=== PATIENT | male | born 1955 | race Caucasian/White ===

== ENCOUNTER 2016-04-25 09:14 | Inpatient (IN) | payer OTHER ==
[~2016-04-25] VITALS: Ht 177.8 cm; Wt 88.9 kg
[2016-04-25] VITALS (8 sets, daily range): BP systolic 91–136; BP diastolic 50–70
--- NOTE | ~2016-04-25 | D ---
[facility] [place] [address] DISCHARGE SUMMARY Name: KARISHMA ANDRADE Room #: 315-P [facility] IN M.R.#: [id number] Admission: 04/25/16 Attend Phys: Tucker Newby MD Discharge: 04/30/16 Date of : 55 Report #: [id number] THIS REPORT FOR: //name// CC: Calvin Sotelo DATE OF SERVICE: 04/30/2016 TYPE OF DICTATION: Discharge summary. After uard-ow-bjdf encounter, I did see the patient and examined him on the day of discharge, 04/30/2016. DISCHARGE DIAGNOSES: 1. Upper gastrointestinal bleed. 2. Acute blood loss anemia. 3. Multiple duodenal ulcers. 4. Benign prostatic hypertrophy. 5. Coronary artery disease, status post coronary artery bypass graft. 6. Hyperlipidemia. 7. Hypertension. DISCHARGE MEDICATIONS: See discharge summary. HOSPITAL COURSE: The patient was admitted to the hospital secondary to dizziness and he was discovered to have severe anemia with hemoglobin in the low range and orthostatic hypertension. The patient was transfused during his stay in the hospital and he underwent EGD, which did show multiple duodenal ulcers. The patient was started on PPI by IV and GI was following him during his stay in the hospital. The patient was doing better than before and his hemoglobin has remained stable and he received several RBC transfusions during his stay in the hospital. On the day of discharge, I did check his venous ultrasound for right lower extremity swelling and it came back negative. Per GI, the patient is okay to go home today. Continue PPI twice a day and to p.o. iron and to follow with GI as outpatient, to do EGD in 6 weeks for followup and to follow up with his primary care in 1 week to check his CBC. <ELECTRONICALLY SIGNED> By: Humberto Cooper MD 05/01/16 1708 1255 1402 Humberto Cooper MD /nt
--- NOTE | ~2016-04-25 | EKG ---
[address] [address] ELECTROCARDIOGRAM REPORT Name: RAYMONDKARISHMA Room #: 170-6 ADM IN M.R.#: [id number] Admission: 04/25/16 Attend Phys: Tucker Newby MD Discharge: Date of : 55 Report #: [id number] THIS REPORT FOR: //name// [facility] Test Date: 2016-04-25 Test Time: 09:06:57 Pat Name: KARISHMA ANDRADE Department: Room: 170 Gender: M Practical Nurse: EASTON : 1955 Requested By: Jose L Tidwell Order Number: [id number] MD: Andrez Simental Measurements Intervals [place] Rate: 82 P: 56 [place]: 150 QRS: 14 QRSD: 80 T: 269 QT: 359 QTc: 420 Interpretive Statements Sinus rhythm Nonspecific T abnormalities, lateral leads Compared to ECG 03/29/2016 09:10:17 No significant changes Electronically Signed On 04-25-2016 14:16:57 ENGINE MECHANIC by Andrez Simental [email or web address] <ELECTRONICALLY SIGNED> By: Andrez Simental MD 04/25/16 1416 5 5 Andrez Simental MD /MICHAEL
--- NOTE | ~2016-04-25 | S ---
[facility] [place] [address] [place] [address] SURGICAL PATH RPT PROCEDURE Name: KARISHMA NOLASCO Room #: 315-P ADM IN M.R.#: [id number] Admission: 04/25/16 Date of : 55 Discharge: Report #: [id number] Path Case #: [id number] PATHOLOGY REPORT COLLECTION DATE: 04/26/2016 RECEIVED DATE: 04/28/2016 SUBMITTING PHYS: Dr. Ervin Carrion OTHER PHYS: Dr. Odin Ceballos SPECIMEN(S) RECEIVED: A.Duodenal ulcer bx of gastric * * * * * * * * * * * * FINAL DIAGNOSIS: Gastric mucosa, tissue designated as "duodenal ulcer biopsy of gastric": - Fragments lined by gastric-type mucosa with features of moderate reactive gastropathy, see comment. - Negative for intestinal metaplasia or atrophy. - Negative for Helicobacter pylori. COMMENT: Helicobacter pylori immunohistochemical stain performed on block A1 negative. Please note if the tissue represents small bowel mucosa, the findings are characteristic of active peptic duodenitis. Clinical correlation is suggested. (IUV:csd; d/t: 04/29/2016) PATHOLOGIST: Christa Juarez M.D. REPORT ELECTRONICALLY SIGNED BY: Christa Juarez M.D. DATE/TIME: 04/29/2016 16:28 * * * * * * * * * * * * GROSS PATHOLOGY: Received in formalin labeled "Karishma Nolasco and duodenal ulcer bx of gastric," are 8 segments of menard soft tissue measuring 1.9 x 0.4 x 0.2 cm in aggregate dimensions and ranging from 0.2 to 0.7 cm in maximum dimension. The specimen is submitted entirely in cassette A1. (TTL; 04/28/2016) CLINICAL HISTORY: Upper GI bleed, duodenal ulcer INITIAL CPT CODE(S): [facility] [place] [address] [place] [address] SURGICAL PATH RPT PROCEDURE Name: KARISHMA NOLASCO Room #: 315-P ADM IN M.R.#: [id number] Admission: 04/25/16 Date of : 55 Discharge: Report #: [id number] Path Case #: [id number]; [id number], [id number] Professional services performed by [facility] at [facility] [address] [facility] , [place] [address] Technical services performed by [facility] at [address] [place] [address], [facility] [address] [address]. [facility] [address] [place] [address] PHONE: [phone] DIRECTOR: Sudhakar Anderson M.D. * * * END OF REPORT * * *
--- NOTE | ~2016-04-25 | EKG ---
[address] [address] ELECTROCARDIOGRAM REPORT Name: KARISHMA ANDRADE Room #: 170-6 ADM IN M.R.#: [id number] Admission: 04/25/16 Attend Phys: Tucker Newby MD Discharge: Date of : 55 Report #: [id number] THIS REPORT FOR: //name// [facility] ED Test Date: 2016-04-25 Test Time: 09:29:15 Pat Name: KARISHMA ANDRADE Department: Room: 170 Gender: M General Education Professor: ankit : 1955 Requested By: Jose L Tidwell Order Number: [id number] MD: Andrez Simental Measurements Intervals [place] Rate: 82 P: 57 [place]: 147 QRS: 24 QRSD: 84 T: 267 QT: 358 QTc: 418 Interpretive Statements Sinus rhythm Borderline T abnormalities, diffuse leads Compared to ECG 03/29/2016 09:10:17 No significant changes Electronically Signed On 04-25-2016 14:17:08 FOREST FIRE CONTROL OFFICER by Andrez Simental [email or web address] <ELECTRONICALLY SIGNED> By: Andrez Simental MD 04/25/16 1417 8 8 Andrez Simental MD /MICHAEL
--- NOTE | ~2016-04-25 | P ---
[facility] [place] [address] PROCEDURE REPORT Name: KARISHMA ANDRADE Room #: 315-[facility] IN M.R.#: [id number] Admission: 04/25/16 Attend Phys: Tucker Newby MD Discharge: Date of : 55 Report #: [id number] THIS REPORT FOR: //name// CC: Calvin Henao III, MD [facility] physician/PCP Wilberto Sotelo MD [facility] Ervin Newby TYPE OF REPORT: Inpatient upper endoscopy. BRIEF HISTORY: The patient is a 60-year-old male who underwent bypass surgery one month ago. He went to cardiac rehab yesterday and became dizzy and lightheaded. He did have some emesis with dark material. He has also had dark stools for at least 3 days. Prior to surgery, he had been using Mobic. Since his surgery, he has been using ibuprofen. He has a history of dyspepsia or reflux symptoms in the past and used p.r.n. Nexium. The patient had a drop in hemoglobin, on 03/30/2016 was 8.4 and when he presented yesterday was 6.7 and he subsequently received 2 units of blood and hemoglobin this morning was 8.3. PREOPERATIVE DIAGNOSIS: Gastrointestinal bleed, presumed upper gastrointestinal bleed. POSTOPERATIVE DIAGNOSES: 1. Active bleeding duodenal ulcer. 2. Multiple nonbleeding duodenal ulcers. 3. Diffuse gastritis. MEDICATIONS: Initial deep sedation with propofol and during the procedure, intubation was performed by anesthesia. SPECIMEN: Biopsies of the gastric mucosa. ESTIMATED BLOOD LOSS: Trivial blood loss of about 3 mL related to biopsies. No blood loss related procedure but the patient did have an active actually bleeding ulcer, which was controlled. PROCEDURE: EGD with hemostasis and biopsy of findings. DESCRIPTION OF PROCEDURE: Prior to propofol sedation, this procedure of upper endoscopy and therapeutic intervention was discussed with the patient, all potential risks and its complications. He indicates he understands and desires to proceed. The patient in left lateral decubitus position, the COTAi video endoscope was [facility] [address] [place] [address] PROCEDURE REPORT Name: RAYMONDKARISHMA Room #: [facility] IN M.R.#: [id number] Admission: 04/25/16 Attend Phys: Tucker Newby MD Discharge: Date of : 55 Report #: [id number] inserted in the cervical esophagus under direct vision. There was a small amount of blood in the cervical esophagus and this was cleared away. The scope was advanced in the esophagus. Active bleeding was not seen. The scope was advanced in the stomach and a small pool of blood and small amount clot was seen and this was aspirated away. However, the gastric mucosa was coated with blood. We then advanced the scope through the stomach and the blood in the stomach was dark. The pylorus was traversed. Two ulcers were seen at the junction of duodenum and the second portion as well as the second portion. Active bleeding was not seen. Distal to that area now beyond the duodenal papilla in about the third portion of duodenum, there was a clot, which was aspirated away and there was an oozing ulcer under this clot. At this point, the patient started to show obstructive signs and the anesthesia was struggling with airway obstruction, which resulted in a bouncing field. It was felt best to withdrawal the scope and intubate the patient. The anesthesia then intubated the patient and adequate sedation was achieved once his airway was controlled and we resumed the procedure with a double channeled scope. Consideration was undertaking for placement of clip but it was felt that the ulcer was flat and the protuberant area was organized clot. We then injected about 2 mL of 2 mL of 1:10,000 epinephrine. The bleeding ceased at that point. There was a small raised area over the ulcer bed. The ulcer relatively shallow. We then used a 10-Belizean BICAP probe and multiple applications of the probe resulted in total destruction of the overlying clot and flattening the lesion with a typical footprint from the BICAP. There was no further hemostasis. Again, several applications were applied. The ulcer was inspected and observed and no further bleeding was seen. As we withdrew the scope, 2 other ulcers were seen. One was linear ulcer about 12-15 mm in length and about 5 mm in width. It had a white exudate, but no clots or bleeding. On the opposite wall was a cratered ulcer of about 7-9 mm, again with a clean basis and no bleeding. No additional bleeding was seen. Scope was withdrawn back into the stomach. Upon retroflexion, no additional lesions were seen. Biopsies obtained of the gastric mucosa to evaluate for H. pylori. Scope was withdrawn to the esophagus and active bleeding was not seen. The scope was withdrawn and the patient tolerated the procedure well. DISPOSITION: The patient with active GI bleeding, controlled as described above. At this point in time, we will continue PPI drip at least overnight. Continue to monitor hemoglobin. He may require additional transfusion that he was actively bleeding during the procedure. He will need a followup endoscopy to ensure healing of the ulcer. The patient does avoid use of nonsteroidals. He may benefit from use of a PPI on a long-term basis. <ELECTRONICALLY SIGNED> By: Ervin Carrion MD 04/27/16 1104 0905 2111 Ervin Carrion MD /evin
[~2016-04-25 09:14] MED LIST: ASPIR 8181 MG PO; ATORVASTATIN CA40 MG PO; FISH OIL 1,0001 EAC8 PO; FLOVENT HFA 2220 MCG INH; GLUCOSAMINE HC500 MG PO; LISINOPRIL40 MG PO; METOPROLOL TART25 MG PO; MOBIC7.5 MG PO; NORCO 5-325 TA1 EACH PO; PROSCAR 5MG TABL5 M1 PO; TESTIM5 GM TD; TYLENOL ARTHRI650 MG PO; TYLENOL PM EX-1 EACH PO; ZYRTEC10 MG PO
[2016-04-25] MEDS ORDERED: PRINIVIL20 MG PO (09:27)
[2016-04-25] MEDS ORDERED: LISINOPRIL20 MG PO (09:28)
[2016-04-25 09:37] LABS: ABSOLUTE NEUTROPHILS 8.2 thou/uL (1.4-8.2); BASOPHILS 0.5 % (0.0-2.0); EOSINOPHILS 1.2 % (0.0-3.0); HEMATOCRIT 25.2 % (42.0-52.0); HEMOGLOBIN 8.4 gm/dL (14.0-18.0); LYMPHOCYTES 12.5 % (24.0-44.0); MCH 29.7 pg (26.0-34.0); MCHC 33.3 % (28.0-37.0); MCV 89.1 fL (80.0-100.0); PLATELET COUNT 216 thou/uL (150-400); POLYS 81.8 % (36.0-66.0); RBC 2.83 mil/uL (4.50-6.00); RDW 14.3 % (10.5-14.5)
[2016-04-25 09:39] LABS: MANUAL DIFF NO
[2016-04-25 09:48] LABS: ANION GAP 8 mmol/L (7-16); BUN 44 mg/dL (7-18); CALCIUM 8.9 mg/dL (8.5-10.1); CHLORIDE 109 mmol/L (98-107); CO2 25 mmol/L (21-32); CREATININE 1.2 mg/dL (0.6-1.3); GLUCOSE 133 mg/dL (70-99); POTASSIUM 4.7 mmol/L (3.5-5.1); SODIUM 142 mmol/L (136-145)
[2016-04-25 09:59] LABS: ALBUMIN 3.1 g/dL (3.4-5.0); ALKALINE PHOSPHATASE 46 U/L (46-116); MAGNESIUM 1.4 mg/dL (1.8-2.4); SGPT 12 U/L (30-65); TOTAL BILIRUBIN 0.2 mg/dL (<0.1-1.0); TROPONIN-I < 0.04 ng/mL (<0.04-0.07)
[2016-04-25 10:06] LABS: SGOT 7 U/L (15-37)
[2016-04-25 19:18] LABS: HEMOGLOBIN 6.7 gm/dL (14.0-18.0)
[2016-04-26] VITALS (10 sets, daily range): BP systolic 95–121; BP diastolic 56–70
[2016-04-26 04:37] LABS: HEMATOCRIT 25.2 % (42.0-52.0); HEMOGLOBIN 8.3 gm/dL (14.0-18.0); MCH 29.2 pg (26.0-34.0); MCHC 32.9 % (28.0-37.0); MCV 88.6 fL (80.0-100.0); RBC 2.84 mil/uL (4.50-6.00); RDW 15.6 % (10.5-14.5); WBC 9.5 thou/uL (4.0-11.0)
[2016-04-26 04:42] LABS: ALBUMIN 2.6 g/dL (3.4-5.0); CALCIUM 8.3 mg/dL (8.5-10.1); CREATININE 1.1 mg/dL (0.6-1.3); POTASSIUM 4.7 mmol/L (3.5-5.1); TOTAL BILIRUBIN 0.5 mg/dL (<0.1-1.0); TOTAL PROTEIN 5.2 g/dL (6.4-8.2)
[2016-04-26 11:16] LABS: HEMATOCRIT 21.5 % (42.0-52.0)
[2016-04-26 11:21] LABS: HEMOGLOBIN 7.3 gm/dL (14.0-18.0)
[2016-04-26 21:23] LABS: HEMATOCRIT 23.9 % (42.0-52.0); HEMOGLOBIN 7.9 gm/dL (14.0-18.0); MCH 29.2 pg (26.0-34.0); MCHC 33.2 % (28.0-37.0); MCV 88.2 fL (80.0-100.0); RBC 2.71 mil/uL (4.50-6.00); RDW 15.2 % (10.5-14.5); WBC 15.7 thou/uL (4.0-11.0)
[2016-04-26 21:35] LABS: INR 1.1; PROTIME 10.9 Seconds (9.3-11.4)
[2016-04-27] VITALS (7 sets, daily range): BP systolic 116–162; BP diastolic 61–90
[2016-04-27 03:42] LABS: HEMOGLOBIN 7.2 gm/dL (14.0-18.0)
[2016-04-27 13:00] LABS: WBC 10.5 thou/uL (4.0-11.0)
[2016-04-27 13:02] LABS: HEMATOCRIT 20.7 % (42.0-52.0); MCH 30.2 pg (26.0-34.0); RBC 2.33 mil/uL (4.50-6.00); RDW 15.7 % (10.5-14.5)
[2016-04-28 04:46] VITALS: BP 106/61
[2016-04-28 06:40] LABS: MONOCYTES 6.6 % (1.0-8.0); POLYS 76.2 % (36.0-66.0)
[2016-04-28 06:42] LABS: BASOPHILS 0.4 % (0.0-2.0); EOSINOPHILS 1.5 % (0.0-3.0); HEMATOCRIT 21.5 % (42.0-52.0); LYMPHOCYTES 15.3 % (24.0-44.0); MCH 30.3 pg (26.0-34.0); MCHC 33.7 % (28.0-37.0); PLATELET COUNT 165 thou/uL (150-400); RBC 2.39 mil/uL (4.50-6.00); WBC 9.2 thou/uL (4.0-11.0)
[2016-04-28 06:48] LABS: MANUAL DIFF NO
[2016-04-28 06:49] LABS: HEMOGLOBIN 7.2 gm/dL (14.0-18.0)
[2016-04-28 06:54] LABS: ALBUMIN 2.6 g/dL (3.4-5.0); ALKALINE PHOSPHATASE 33 U/L (46-116); ANION GAP 9 mmol/L (7-16); BUN 30 mg/dL (7-18); CALCIUM 8.1 mg/dL (8.5-10.1); CHLORIDE 107 mmol/L (98-107); CO2 25 mmol/L (21-32); GLUCOSE 118 mg/dL (70-99); POTASSIUM 3.8 mmol/L (3.5-5.1); SGOT < 5 U/L (15-37); SGPT 12 U/L (30-65); SODIUM 141 mmol/L (136-145); TOTAL BILIRUBIN 0.6 mg/dL (<0.1-1.0); TOTAL PROTEIN 5.1 g/dL (6.4-8.2)
[2016-04-28 08:29] VITALS: BP 125/64
[2016-04-28 11:58] VITALS: BP 120/58
[2016-04-28 17:07] VITALS: BP 104/54
[2016-04-28 17:40] LABS: HEMATOCRIT 21.3 % (42.0-52.0)
[2016-04-28 17:45] LABS: HEMOGLOBIN 7.2 gm/dL (14.0-18.0)
[2016-04-28 20:50] VITALS: BP 104/54
[2016-04-29 04:43] VITALS: BP 121/69
[2016-04-29 06:33] LABS: WBC 8.3 thou/uL (4.0-11.0)
[2016-04-29 06:36] LABS: HEMATOCRIT 21.7 % (42.0-52.0); MCH 30.1 pg (26.0-34.0); MCHC 32.9 % (28.0-37.0); MCV 91.4 fL (80.0-100.0); RBC 2.37 mil/uL (4.50-6.00); RDW 16.3 % (10.5-14.5)
[2016-04-29 07:02] LABS: HEMOGLOBIN 7.1 gm/dL (14.0-18.0)
[2016-04-29 08:00] VITALS: BP 108/64
[2016-04-29 12:00] VITALS: BP 110/61
[2016-04-29 14:39] VITALS: BP 114/64; BP 125/72
[2016-04-29 16:00] VITALS: BP 125/72
[2016-04-29 20:56] VITALS: BP 148/71
[2016-04-30 05:00] VITALS: BP 139/74
[2016-04-30 06:42] LABS: HEMOGLOBIN 8.2 gm/dL (14.0-18.0)
[2016-04-30 08:25] VITALS: BP 131/76
[2016-04-30 12:26] VITALS: BP 136/76
[2016-04-30] MEDS ORDERED: FERREX 150 PLU1 EAC1 PO (12:57)
[2016-04-30] MEDS ORDERED: NEXIUM40 MG PO (12:57)
[2016-04-30 13:30] VITALS: BP 136/76
[2016-04-30 13:39] VITALS: BP 136/76
[2016-04-30] MEDS ORDERED: PROTONIX40 M1 PO (13:39)
== END 2016-04-30 14:25 | disposition home or self-care (01) | DRG 377 ==
LOC: ER 09:14 → EROBS 12:18 → 3N 12:18
PROVIDERS: Emergency Medicine; Family Medicine; Internal Medicine Gastroenterology; Nurse Practitioner Family; Specialist
PROC: 3E0G8GC Introduction of Other Therapeutic Substance into Upper GI, Via Natural or Artificial Opening Endoscopic (ICD-10-PCS; principal; 2016-04-26)
PROC: 0DB68ZX Excision of Stomach, Via Natural or Artificial Opening Endoscopic, Diagnostic (ICD-10-PCS; principal; 2016-04-26)
PROC: 0W3P8ZZ Control Bleeding in Gastrointestinal Tract, Via Natural or Artificial Opening Endoscopic (ICD-10-PCS; principal; 2016-04-26)
PROC: 30233N1 Transfusion of Nonautologous Red Blood Cells into Peripheral Vein, Percutaneous Approach (ICD-10-PCS; 2016-04-27)
DX: K26.4 Chronic or unspecified duodenal ulcer with hemorrhage (principal); J69.0 Pneumonitis due to inhalation of food and vomit; J96.01 Acute respiratory failure with hypoxia; D62 Acute posthemorrhagic anemia; K92.2 Gastrointestinal hemorrhage, unspecified; I10 Essential (primary) hypertension; N40.0 Benign prostatic hyperplasia without lower urinary tract symptoms; I25.10 Atherosclerotic heart disease of native coronary artery without angina pectoris; E78.5 Hyperlipidemia, unspecified; K29.60 Other gastritis without bleeding; K21.9 Gastro-esophageal reflux disease without esophagitis; Z95.1 Presence of aortocoronary bypass graft; Z90.49 Acquired absence of other specified parts of digestive tract; Z79.899 Other long term (current) drug therapy; Z79.82 Long term (current) use of aspirin; Z88.1 Allergy status to other antibiotic agents
CPT/HCPCS: 10096; 23012; 62110; 62900; 70005

== ENCOUNTER 2016-06-27 09:49 | Inpatient (IN) | payer OTHER ==
[~2016-06-27] VITALS: Ht 177.8 cm; Wt 84.0 kg
--- NOTE | ~2016-06-27 | EKG ---
[address] [place] [address] ELECTROCARDIOGRAM REPORT Name: KARISHMA ANDRADE Room #: 212-P ADM IN M.R.#: [id number] Admission: 06/27/16 Attend Phys: Santa Canela Discharge: Date of : 55 Report #: [id number] THIS REPORT FOR: //name// [facility] Test Date: 2016-06-27 Test Time: 18:23:34 Pat Name: KARISHMA ANDRADE Department: Room: 212 P Gender: M Macerator Operator: Brenda RIOS : 1955 Requested By: Jolie Ortiz Order Number: [id number] MD: Refugio Donahue Measurements Intervals [place] Rate: 123 P: 46 [place]: 137 QRS: -2 QRSD: 84 T: 172 QT: 286 QTc: 409 Interpretive Statements Sinus tachycardia LVH with secondary repolarization abnormality Compared to ECG 04/25/2016 09:29:15 No significant change was found Electronically Signed On 06-28-2016 11:57:15 BRIDGE CONSTRUCTION INSPECTOR by Refugio Donahue [email or web address] <ELECTRONICALLY SIGNED> By: Refugio Donahue MD, [facility] 06/28/16 1157 22 22 Refugio Donahue MD, [facility] /EPI
--- NOTE | ~2016-06-27 | CNG ---
[facility] [place] [address] CYTO-NONGYN REPORT PROCEDURE Name: RAYMONDFRANCIAKARISHMA Room #: 212-P ADM IN M.R.#: [id number] Admission: 06/27/16 Date of : 55 Discharge: Report #: [id number] Path Case #: [id number] CYTOPATHOLOGY REPORT COLLECTION DATE: 06/30/2016 RECEIVED DATE: 06/30/2016 SUBMITTING PHYS: SCOTT Hill OTHER PHYS: Dr. Santa Canela CLINICAL HISTORY: Pleural effusion; SOB; left shoulder/flank pain SPECIMEN(S) RECEIVED: A.Pleural fluid * * * * * * * * * * * * FINAL DIAGNOSIS: A. Pleural fluid: - No malignant cells identified. -Specimen is predominantly acute inflammatory cells compatible with an exudate. PATHOLOGIST: Christa Juarez M.D. REPORT ELECTRONICALLY SIGNED BY: Christa Juarez M.D. DATE/TIME: 07/01/2016 16:26 * * * * * * * * * * * * GROSS PATHOLOGY: A. Pleural fluid: The specimen is submitted unfixed, labeled "Karishma Andrade". Received by the Cytology Department is 30 mL of yellow fluid. One ThinPrep slide and a cell block were prepared. (kg 06/30/16) ABALONE DIVER(S): REY Finch([facility] INITIAL CPT CODE(S): A; 15427, 42614 Professional services performed by [facility] at [facility] [address], [place] [address] Technical services performed by [facility] at [address] [place] [address]., [address], [place] [address]. [facility] [address] [place] [address], [facility] [address] [place] [address] PHONE: [phone] [facility] [address] [place] [address] CYTO-NONGYN REPORT PROCEDURE Name: KARISHMA ANDRADE Room #: 212-P ADM IN M.R.#: [id number] Admission: 06/27/16 Date of : 55 Discharge: Report #: [id number] Path Case #: [id number] DIRECTOR: Sudhakar Anderson M.D. * * * END OF REPORT * * *
--- NOTE | ~2016-06-27 | EKG ---
[place] [address] [facility] [employer] [place] [address] ELECTROCARDIOGRAM REPORT Name: KARISHMA ANDRADE Room #: 212-[facility] IN M.R.#: [id number] Admission: 06/27/16 Attend Phys: Santa Canela Discharge: 07/03/16 Date of : 55 Report #: [id number] THIS REPORT FOR: //name// [facility] Test Date: 2016-07-03 Test Time: 11:20:29 Pat Name: KARISHMA ANDRADE Department: Room: 212 P Gender: M Chiropractic Assistant: macario : 1955 Requested By: Melody Beck Order Number: [id number] MD: Refugio Donahue Measurements Intervals [place] Rate: 94 P: 8 [place]: 136 QRS: -2 QRSD: 71 T: 32 QT: 334 QTc: 418 Interpretive Statements Sinus rhythm Nonspecific T wave abnormality Compared to ECG 06/27/2016 18:23:34 ST and T wave abnormality is less pronounced Electronically Signed On 07-04-2016 8:25:51 CDT by Refugio Donahue [email or web address] <ELECTRONICALLY SIGNED> By: Refugio Donahue MD, [facility] 07/04/16 0825 1120 1120 Refugio Donahue MD, [facility] /EPI
--- NOTE | ~2016-06-27 | HC ---
[facility] [place] [address] CONSULTATION Name: RAYMONDKARISHMA RUSS Room #: 212-P [facility] IN M.R.#: [id number] Admission: 06/27/16 Attend Phys: Santa Canela Discharge: 07/03/16 Date of : 55 Report #: [id number] THIS REPORT FOR: //name// CC: Calvin Catron Santa Canela DATE OF SERVICE: 06/28/2016 HISTORY OF PRESENT ILLNESS: We were asked to see the patient. The patient is a 61-year-old known to me from coronary artery bypass surgery in early March 2016. The patient had a somewhat slow, but satisfactory hospital convalescence and was discharged in satisfactory condition. We note that the patient had an upper gastrointestinal bleed requiring blood transfusion in April and was readmitted on June 27, for a large pleural effusion. This was symptomatic as the patient presented with chest pain, shortness of breath with exertion and rest and associated with lower extremity edema. We note that the patient was given cortisone injection for shoulder pain prior to this, but no chest x-ray was done. Ultimately, the patient had a chest x-ray in his primary care physician's office and that prompted the readmission. PAST MEDICAL HISTORY: Significant for hypertension and hyperlipidemia. There is a history of previous pneumonia. MEDICATIONS: At home includes Proscar, Lipitor, metoprolol, lisinopril, Carafate, Flexeril, Flonase, vitamin C and vitamin D, Tylenol, Zyrtec, omega-3, and glucosamine. ALLERGIES: AMOXICILLIN. FAMILY HISTORY: Not significant. SOCIAL HISTORY: Nonsmoker, and lives [place]ally. REVIEW OF SYSTEMS: GENERAL: The patient has had fatigue and generalized weakness since bypass surgery. Denied fever to me. EYES: No vision change. HEENT: No specific nasal discharge or sore throat. RESPIRATORY: Shortness of breath, pleuritic chest pain, shortness of breath with exertion. CARDIAC: Fluid retention, peripheral edema. No angina, but chest pain of an incision nature, has had a tachycardia as well. GASTROINTESTINAL: No nausea, vomiting, or diarrhea. GENITOURINARY: No dysuria or frequency. [facility] [address] [place] [address] CONSULTATION Name: KARISHMA ANDRADE Room #: 212-P [facility] IN M.R.#: [id number] Admission: 06/27/16 Attend Phys: Santa Canela Discharge: 07/03/16 Date of : 55 Report #: [id number] SKIN: No rash or infection. NEUROLOGIC: No motor or sensory weakness. MUSCULOSKELETAL: No bone or joint problems other than some left shoulder pain that was probably referred pain from the diaphragm. HEMATOLOGIC: Anemia related to the GI bleeding, treated. LYMPHATIC: No swelling. ENDOCRINE: No hot or cold intolerance. PHYSICAL EXAMINATION: VITAL SIGNS: Temperature 37.3, pulse rate 120, respiratory rate 18, and blood pressure 115/72. HEENT: Normocephalic. Pupils are round and equal. Gaze conjugate, no icterus. NECK: No lymphadenopathy, no bruit. CHEST: Decreased breath sounds, left chest, otherwise clear. HEART: Rhythm regular. Incision healing nicely. ABDOMEN: Soft, no mass, no tenderness. EXTREMITIES: No clubbing or cyanosis, no significant edema, strong distal pulses. SKIN: No rash or infection. NEUROLOGIC: No motor or sensory dysfunction. MUSCULOSKELETAL: No bone or joint deformity or dyssymmetry. NEUROLOGIC: Oriented and appropriate, but appears somewhat generally weak. IMPRESSION: The patient has a loculated left pleural effusion. We note that thoracentesis has been done, but there is some residual fluid. There may be fluid component and we will discuss with radiology prospects of draining it. Otherwise, decision to recommend surgery will be based on clinical basis, the patient is reluctant to surgery, but let us see what we can do with repeat thoracentesis before making that decision. Thank you for the consult. <ELECTRONICALLY SIGNED> By: Ervin House MD 07/09/16 1948 1030 1353 Ervin House MD /nt
--- NOTE | ~2016-06-27 | CNG ---
[facility] [address] [address] CYTO-NONGYN REPORT PROCEDURE Name: KARISHMA NOLASCO Room #: 212-P ADM IN M.R.#: [id number] Admission: 06/27/16 Date of : 55 Discharge: Report #: [id number] Path Case #: [id number] CYTOPATHOLOGY REPORT COLLECTION DATE: 06/27/2016 RECEIVED DATE: 06/27/2016 SUBMITTING PHYS: Dr. Santa Canela OTHER PHYS: CLINICAL HISTORY: Pleural effusion SPECIMEN(S) RECEIVED: A.Pleural fluid * * * * * * * * * * * * FINAL DIAGNOSIS: A. Pleural fluid: - No malignant cells identified. Marked acute inflammation identified. PATHOLOGIST: Christa Juarez M.D. REPORT ELECTRONICALLY SIGNED BY: Christa Juarez M.D. DATE/TIME: 06/30/2016 17:01 * * * * * * * * * * * * GROSS PATHOLOGY: A. Pleural fluid: The specimen is submitted unfixed, labeled "Karishma Nolasco". Received by the Cytology Department is 25 mL of yellow fluid. One ThinPrep slide and a cell block were prepared. (kg 06/27) PROJECT MANAGER/DESIGN MANAGER(S): REY Sandoval(ASCP), IAC INITIAL CPT CODE(S): A; 03026, 59670 Professional services performed by [facility] at [facility] [address], [place] [address] Technical services performed by [facility] at [address] [facility], [place] [address]. [facility] [address] [place] [address], [address] [place] [address] PHONE: [phone] DIRECTOR: Sudhakar Anderson M.D. [facility] [address] [place] [address] CYTO-NONGYN REPORT PROCEDURE Name: KARISHMA NOLASCO Room #: 212-P ADM IN M.R.#: [id number] Admission: 06/27/16 Date of : 55 Discharge: Report #: [id number] Path Case #: [id number] * * * END OF REPORT * * *
--- NOTE | ~2016-06-27 | HC ---
[facility] [place] [address] [place] [address] CONSULTATION Name: KARISHMA ANDRADE Room #: 212-P ADM IN M.R.#: [id number] Admission: 06/27/16 Attend Phys: Santa Canela Discharge: Date of : 55 Report #: [id number] THIS REPORT FOR: //name// CC: Calvin Canela REASON FOR CONSULTATION: Left chest pleural fluid collection. HISTORY OF PRESENT ILLNESS: The patient was a 61-year-old, underwent a 5-vessel coronary bypass grafting 03/26/2016 by Gadiel House. Did reasonably well until 04/25/2016 where he was diagnosed with gastritis and multiple duodenal ulcers with upper GI bleed. He has undergone 2 upper endoscopies. His last endoscopy showed marked improvement, but not totally healed. Two weeks ago developed minimally productive cough, mostly a light colored sputum. Developed more shortness of breath with dyspnea on exertion and mild orthopnea. Then developed a left pleuritic chest pain mid week last week. Seen in the outpatient clinic and given a cortisone injection. He felt better for 24 hours and then worsened. Trial of diuretics did not improve the situation. Most of his pain remains on the left chest with some radiation to his left shoulder. He has had no hemoptysis. He has not been on any current blood thinners. No antibiotics prior to his admission. Since admitted, he has been placed on Levaquin and given a dose of metronidazole. ALLERGIES: AMOXICILLIN. OTHER MEDICATIONS: As noted on his MAR including a Proscar, Lipitor, metoprolol, lisinopril, Carafate, Flexeril, Flonase, vitamin C, vitamin D, Tylenol, Zyrtec, omega-3 and glucosamine. PAST MEDICAL HISTORY: Appendectomy, he has had back surgery, wrist surgery, sinus surgery, previous pneumonia, hyperlipidemia and hypertension. FAMILY HISTORY: Noncontributory. SOCIAL HISTORY: Nonsmoker, no significant alcohol intake. Lives with his . REVIEW OF SYSTEMS: He denies any nausea, vomiting or diarrhea. No dysuria or frequency. No rashes. No drainage from the sternal incision. He has chronic sinus disease with postnasal drip. PHYSICAL EXAMINATION: VITAL SIGNS: He is afebrile, maximum temperature was 99 degrees, heart rate 120s, blood pressure 115/72. He underwent a left thoracentesis yesterday. GENERAL: He was alert and cooperative, sitting up in his chair eating his lunch. HEENT: Unremarkable. NECK: Supple. [facility] [address] [place] [address] CONSULTATION Name: KARISHMA ANDRADE Room #: 212-P [facility] IN .R.#: [id number] Admission: 06/27/16 Attend Phys: Santa Canela Discharge: Date of : 55 Report #: [id number] LUNGS: Decreased breath sounds in the left base posteriorly. HEART: Regular, tachycardic. ABDOMEN: Soft, mild tenderness in the epigastric region. No hepatosplenomegaly or mass. EXTREMITIES: 1+ edema in both lower extremities below the knee. NEUROLOGIC: Nonfocal. LABORATORY STUDIES: Chest x-ray shows a fairly large left pleural effusion with associated atelectasis. Sodium 135, potassium 3.1, bicarbonate 25, creatinine 1, ALT 73. Hemoglobin 9.1, platelet count 580,000, white count 17.4. Urinalysis unremarkable. INR 1.1. Analysis of the left chest fluid, which is 450 mL and had a pH of 7.2. Protein of 5, albumin 2.8. LDH 911. Glucose 39. Cell count was 5500 cells, 90% neutrophils. Do not have a Gram stain or a culture, although was ordered, it was not sent to the laboratory for analysis. I did call down to the microbiology laboratory and they are working for the specimen and will get it set up once they can find it. I do not have a post-thoracentesis chest x-ray. IMPRESSION AND PLAN: A 61-year-old with an exudative pleural effusion on the left, associated with leukocytosis, pain and cough. I am concerned about possible empyema. I would recommend a CT scan of the chest to ensure we have adequate drainage. We will consultation cardiothoracic surgery for followup evaluation. I have contacted laboratory studies to ensure cultures have been obtained. We will continue with vancomycin and Levaquin noticing his PENICILLIN allergy. He will be screened for MRSA. We will also obtain blood culture and followup CBC with differential. <ELECTRONICALLY SIGNED> By: Jamil Gardner MD 06/29/16 1115 1259 0116 Jamil Gardner MD /nt
--- NOTE | ~2016-06-27 | HC ---
[facility] [place] [address] CONSULTATION Name: KARISHMA ANDRADE Room #: 212-P [facility] IN M.R.#: [id number] Admission: 06/27/16 Attend Phys: Santa Canela Discharge: 07/03/16 Date of : 55 Report #: [id number] THIS REPORT FOR: //name// CC: Calvin Canela DATE OF SERVICE: 07/01/2016 PRIMARY CARE PHYSICIAN: Calvin Henao MD REFERRAL PHYSICIAN: Jorge Flaherty MD REASON FOR REFERRAL: Loculated pleural effusion. HISTORY OF PRESENT ILLNESS: The patient is a 61-year-old white male who was admitted on 06/27/2016 due to dyspnea and large pleural effusion. A pulmonary consultation was requested. The patient underwent coronary artery bypass surgery on 03/26/2016. Perioperatively, the patient did well. In April 2016, he was found to have upper GI bleed. EGD revealed duodenal ulcers. A recent followup by his gastroenterology suggest that some of the ulcers have not healed completely yet. While undergoing cardiac rehabilitation last week, he was found to be tachypneic, not feeling well. His heart rate was said to be 130s. A chest x-ray was requested. This revealed large left-sided pleural effusion. On June 27, the patient underwent thoracentesis. This procedure yielded approximately 450 mL of pleural fluid on the left. The discoloration description of pleural fluid was not described. The patient also underwent another thoracentesis on 06/30/2016. Only 100 mL of pleural fluid was drained. The pleural fluid was clear. Subsequent studies including a CT chest revealed phpl-si-dirbmexc loculated left-sided pleural effusion. The pleural fluid analysis showed pleural fluid LDH of over 1000, pH was 7.2, protein was 5, amylase was 32. Cytology was negative for malignant cells; it is notable for marked inflammatory cells. Gram stain shows no organisms, but many polymorphonucleocytes. Culture so far has been negative. Otherwise, the patient does not recall any recent febrile illness, chest pain, myalgias, fever or chills. Since admission and following 2 thoracenteses, he states that he feels better. [facility] [address] [place] [address] CONSULTATION Name: KARISHMA ANDRADE Room #: 212-P [facility] IN .R.#: [id number] Admission: 06/27/16 Attend Phys: Santa Canela Discharge: 07/03/16 Date of : 55 Report #: [id number] Dyspnea has improved. Only complaint is mild left shoulder and chest discomfort. PAST MEDICAL HISTORY: As mentioned above, coronary artery disease, undergoing coronary artery bypass surgery in March 2016, echocardiogram showed normal EF; otherwise, no significant findings, peptic ulcer disease as mentioned above in April 2016, hypertension, hyperlipidemia. PAST SURGICAL HISTORY: As mentioned above including appendectomy, prior back surgery, wrist surgery, prior sinus surgery. ALLERGIES: PENICILLIN which causes hives. CURRENT MEDICATIONS: List reviewed. This includes atenolol, Protonix, vancomycin, lisinopril, fluticasone, Levaquin, atorvastatin, sucralfate, DuoNebs, loratadine, hydrocodone. FAMILY HISTORY: Noncontributory. SOCIAL HISTORY: He is a lifetime nonsmoker, drinks socially. He also notes that he is somewhat apprehensive now because his brother last January from aspiration pneumonia. REVIEW OF SYSTEMS: Otherwise, review of system as mentioned above, 10-point system review negative. PHYSICAL EXAMINATION: GENERAL: He is awake, alert, in no apparent distress. VITAL SIGNS: Temperature is 98 degrees Fahrenheit, pulse is 118, respiratory rate is 20, blood pressure 106/70 mmHg, saturation 99%. HEENT: Normocephalic, atraumatic. NECK: Supple without any lymphadenopathy or thyromegaly. CHEST: Breath sounds are decreased in the left base. No rales or wheezes are noted. CARDIOVASCULAR: Normal S1, S2. There are no murmurs or gallop. There is no JVD. There is no carotid bruit. Pulses are 2+/4+ bilaterally. ABDOMEN: Soft, nontender, no organomegaly or masses felt. GENITOURINARY: Deferred. RECTAL: Deferred. EXTREMITIES: There is no edema, cyanosis or clubbing. LABORATORY DATA AND IMAGING STUDIES: CT chest and chest x-ray as mentioned above showing [id number] loculated left-sided pleural effusion. Cytology has been negative for malignant cells. Electrolytes are normal. Liver function test is normal. WBC 15,000; no differential being done, hemoglobin 8.3, platelets are mildly increased. Albumin 2.0. [address] [address] CONSULTATION Name: KARISHMA ANDRADE Room #: 212-P [facility] IN M.R.#: [id number] Admission: 06/27/16 Attend Phys: Santa Canela Discharge: 07/03/16 Date of : 55 Report #: [id number] IMPRESSION: 1. Loculated pleural effusion in a 61-year-old white male. Pleural fluid analysis suggested ____. The pH is borderline being empyema with a pH of 7.2. LDH was markedly elevated from 900 to 1000. Cultures so far have been negative. This is felt to be presumed related to pneumonia. Postcardiotomy syndrome is also considered. Doubtful there is malignancy. 2. Recent coronary artery bypass surgery in March 2016. 3. Peptic ulcer disease in April 2016. 4. Protein-calorie malnutrition, severe. RECOMMENDATION AND DISCUSSION: Our daily surgical decortication will be treatment of choice for this patient; however, the patient is quite apprehensive in proceeding with another surgery. I think it is reasonable to hold off on surgery given that it is not overt empyema. Agree with followup CT chest tomorrow and will discuss with the patient. If pleural fluid remains moderate and he remains symptomatic, surgical decortication might be the best option. Alternatively, if the patient absolutely refuses surgery, he could be followed as an outpatient closely. Thank you for this consultation. <ELECTRONICALLY SIGNED> By: Darwin Burton MD 07/03/16 1801 1631 20 Darwin Burton MD /nt
[~2016-06-27 09:49] MED LIST changes: +FERREX 150 PLU1 EAC1 PO; +LISINOPRIL20 MG PO; +NEXIUM40 MG PO; +PRINIVIL20 MG PO; +PROTONIX40 M1 PO
[2016-06-27] MEDS ORDERED: CARAFATE 1 GM TA1 G1 PO (12:09)
[2016-06-27] MEDS ORDERED: FLEXERIL PO (12:10)
[2016-06-27] MEDS ORDERED: FLONASE 0.05%50 MCG NASAL (12:20)
[2016-06-27] MEDS ORDERED: VITAMIN D1000 UNI1 PO (12:21)
[2016-06-27] MEDS ORDERED: VITAMINC500 PO (12:21)
[2016-06-27] MEDS ORDERED: TYLENOL PM EX-1 EACH PO (12:22)
[2016-06-27] MEDS ORDERED: LASIX 40 MG TAB40 M2 PO (12:50)
[2016-06-27] MEDS ORDERED: POTASSIUM20 PO (12:51)
[2016-06-27 13:03] LABS: HEMATOCRIT 29.4 % (42.0-52.0); HEMOGLOBIN 9.1 gm/dL (14.0-18.0); MCH 24.5 pg (26.0-34.0); MCV 79.2 fL (80.0-100.0); RBC 3.72 mil/uL (4.50-6.00); RDW 17.5 % (10.5-14.5); WBC 17.4 thou/uL (4.0-11.0)
[2016-06-27 13:03] LABS: URINE BILIRUBIN NEGATIVE (Negative); URINE BLOOD NEGATIVE (Negative); URINE COLOR YELLOW; URINE GLUCOSE-RANDOM* NEGATIVE (Negative); URINE KETONES NEGATIVE (Negative); URINE NITRITE NEGATIVE (Negative); URINE PROTEIN (DIPSTICK) NEGATIVE (Negative); URINE UROBILINOGEN 0.2 E.U./dl (0.2-1.0)
[2016-06-27 13:19] LABS: CALCIUM 9.5 mg/dL (8.5-10.1); POTASSIUM 3.9 mmol/L (3.5-5.1)
[2016-06-27 13:20] LABS: INR 1.1; PROTIME 11.8 Seconds (9.3-11.4)
[2016-06-27 13:24] LABS: ALBUMIN 2.4 g/dL (3.4-5.0); TOTAL BILIRUBIN 0.5 mg/dL (<0.1-1.0); TOTAL PROTEIN 7.7 g/dL (6.4-8.2)
[2016-06-27 15:39] LABS: BF NUCLEATED CELLS 5499; BF RBC 2149
[2016-06-27 15:41] LABS: CLARITY CLOUDY; COLOR YELLOW; TOTAL VOLUME 60 mL
[2016-06-27 18:14] LABS: BF NEUTROPHILS 91; MANUAL DIFF YES
[2016-06-27 18:15] LABS: BF COMMENTS 1 MONOCYTE; BF MACROPHAGE 3
[2016-06-28 07:10] LABS: BODY FLUID ALBUMIN 2.8 g/dL (()); BODY FLUID AMYLASE 32 U/L (()); BODY FLUID GLUCOSE 39 mg/dL (()); BODY FLUID LDH 911 IU/L (())
[2016-06-28 16:47] LABS: HEMATOCRIT 29.2 % (42.0-52.0); HEMOGLOBIN 9.3 gm/dL (14.0-18.0); MCH 24.9 pg (26.0-34.0); MCHC 31.8 g/dL (28.0-37.0); MCV 78.5 fL (80.0-100.0); PLATELET COUNT 596 thou/uL (150-400); RBC 3.72 mil/uL (4.50-6.00); RDW 17.7 % (10.5-14.5); WBC 16.9 thou/uL (4.0-11.0)
[2016-06-28 17:01] LABS: MANUAL DIFF YES
[2016-06-28 17:17] LABS: ABSOLUTE NEUTROPHILS 14.5 thou/uL (1.4-8.2); ANISOCYTOSIS 1+; TOTAL CELL COUNT 100
[2016-06-29 04:05] LABS: HEMOGLOBIN 9.2 gm/dL (14.0-18.0); MCHC 31.7 g/dL (28.0-37.0); MCV 78.8 fL (80.0-100.0); RBC 3.68 mil/uL (4.50-6.00); RDW 18.4 % (10.5-14.5); WBC 17.9 thou/uL (4.0-11.0)
[2016-06-29 04:17] LABS: ALBUMIN 2.2 g/dL (3.4-5.0); CALCIUM 8.6 mg/dL (8.5-10.1); CREATININE 1.1 mg/dL (0.6-1.3); PHOSPHORUS 4.9 mg/dL (2.5-4.9); POTASSIUM 4.1 mmol/L (3.5-5.1)
[2016-06-30 04:36] LABS: HEMATOCRIT 26.9 % (42.0-52.0); HEMOGLOBIN 8.7 gm/dL (14.0-18.0); MCH 25.1 pg (26.0-34.0); MCHC 32.1 g/dL (28.0-37.0); MCV 78.1 fL (80.0-100.0); PLATELET COUNT 550 thou/uL (150-400); RBC 3.45 mil/uL (4.50-6.00); RDW 17.5 % (10.5-14.5); WBC 18.4 thou/uL (4.0-11.0)
[2016-06-30 04:41] LABS: MANUAL DIFF YES
[2016-06-30 04:47] LABS: CALCIUM 8.4 mg/dL (8.5-10.1); CREATININE 1.1 mg/dL (0.6-1.3); POTASSIUM 3.9 mmol/L (3.5-5.1); TOTAL BILIRUBIN 0.4 mg/dL (<0.1-1.0); TOTAL PROTEIN 6.1 g/dL (6.4-8.2)
[2016-06-30 06:59] LABS: ABSOLUTE NEUTROPHILS 16.4 thou/uL (1.4-8.2); TOTAL CELL COUNT 100
[2016-06-30 07:01] LABS: ANISOCYTOSIS 1+; POLYCHROMASIA OCCASIONAL
[2016-06-30 15:25] LABS: CLARITY TURBID; COLOR AMBER; TOTAL VOLUME 63 mL
[2016-06-30 15:35] LABS: BF NUCLEATED CELLS 7189; BF RBC 4760
[2016-06-30 18:06] LABS: BF MACROPHAGE 0; BF NEUTROPHILS 97; MANUAL DIFF YES
[2016-06-30 19:08] LABS: BODY FLUID ALBUMIN 2.5 g/dL (()); BODY FLUID AMYLASE 35 U/L (()); BODY FLUID GLUCOSE 30 mg/dL (()); BODY FLUID LDH 1226 IU/L (()); BODY FLUID PROTEIN 4.9 g/dL (())
[2016-07-01 02:05] LABS: HEMOGLOBIN 8.3 gm/dL (14.0-18.0); MCH 24.8 pg (26.0-34.0); MCHC 31.9 g/dL (28.0-37.0); MCV 77.7 fL (80.0-100.0); RBC 3.35 mil/uL (4.50-6.00); RDW 18.3 % (10.5-14.5)
[2016-07-01 02:12] LABS: CALCIUM 8.6 mg/dL (8.5-10.1); POTASSIUM 3.8 mmol/L (3.5-5.1)
[2016-07-01 18:43] LABS: CREATININE 1.1 mg/dL (0.6-1.3); POTASSIUM 3.7 mmol/L (3.5-5.1)
[2016-07-02 07:10] LABS: HEMATOCRIT 29.6 % (42.0-52.0); HEMOGLOBIN 9.4 gm/dL (14.0-18.0); MCH 24.6 pg (26.0-34.0); MCHC 31.8 g/dL (28.0-37.0); MCV 77.5 fL (80.0-100.0); RBC 3.82 mil/uL (4.50-6.00); RDW 18.3 % (10.5-14.5); WBC 18.7 thou/uL (4.0-11.0)
[2016-07-02 07:17] LABS: MANUAL DIFF YES; PLATELET COUNT 639 thou/uL (150-400)
[2016-07-02 07:23] LABS: CALCIUM 9.2 mg/dL (8.5-10.1); MAGNESIUM 1.5 mg/dL (1.8-2.4); POTASSIUM 3.9 mmol/L (3.5-5.1)
[2016-07-02 07:40] LABS: ABSOLUTE NEUTROPHILS 16.6 thou/uL (1.4-8.2); ANISOCYTOSIS 2+; HYPOCHROMASIA 1+; POLYCHROMASIA OCCASIONAL; TOTAL CELL COUNT 100
[2016-07-03 03:24] LABS: MCH 24.8 pg (26.0-34.0); MCHC 31.9 g/dL (28.0-37.0); MCV 77.9 fL (80.0-100.0); RBC 3.21 mil/uL (4.50-6.00); RDW 18.1 % (10.5-14.5)
[2016-07-03 03:31] LABS: CALCIUM 8.6 mg/dL (8.5-10.1); CREATININE 0.9 mg/dL (0.6-1.3); POTASSIUM 3.7 mmol/L (3.5-5.1)
[2016-07-03] MEDS ORDERED: LEVAQUIN 500 M500 M4 PO (10:23)
[2016-07-03] MEDS ORDERED: ATENOLOL 100MG100 M2 PO (13:43)
[2016-07-03] MEDS ORDERED: LEVAQUIN 500 M500 M9 PO (13:43)
[2016-07-03] MEDS ORDERED: LISINOPRIL5 MG PO (13:43)
== END 2016-07-03 14:50 | disposition home or self-care (01) | DRG 177 ==
LOC: 2N 09:49
PROVIDERS: Hospitalist; Internal Medicine; Nurse Practitioner Family; Physician Assistant; Specialist; Surgery Vascular Surgery
PROC: BB4BZZZ Ultrasonography of Pleura (ICD-10-PCS; principal; 2016-06-27)
PROC: 0W993ZX Drainage of Right Pleural Cavity, Percutaneous Approach, Diagnostic (ICD-10-PCS; principal; 2016-06-27)
PROC: 0W9B3ZX Drainage of Left Pleural Cavity, Percutaneous Approach, Diagnostic (ICD-10-PCS; 2016-06-30)
PROC: BB4BZZZ Ultrasonography of Pleura (ICD-10-PCS; 2016-06-30)
DX: J15.6 Pneumonia due to other Gram-negative bacteria (principal); J86.9 Pyothorax without fistula; E43 Unspecified severe protein-calorie malnutrition; I50.33 Acute on chronic diastolic (congestive) heart failure; J90 Pleural effusion, not elsewhere classified; E87.1 Hypo-osmolality and hyponatremia; E78.5 Hyperlipidemia, unspecified; I25.10 Atherosclerotic heart disease of native coronary artery without angina pectoris; G89.29 Other chronic pain; M54.9 Dorsalgia, unspecified; J30.2 Other seasonal allergic rhinitis; D64.9 Anemia, unspecified; I50.9 Heart failure, unspecified; I11.0 Hypertensive heart disease with heart failure; N40.0 Benign prostatic hyperplasia without lower urinary tract symptoms; E78.00 Pure hypercholesterolemia, unspecified; K21.9 Gastro-esophageal reflux disease without esophagitis; E78.1 Pure hyperglyceridemia; Z90.49 Acquired absence of other specified parts of digestive tract; Z95.1 Presence of aortocoronary bypass graft; Z68.26 Body mass index [BMI] 26.0-26.9, adult; Z87.11 Personal history of peptic ulcer disease; Z88.0 Allergy status to penicillin; Z88.1 Allergy status to other antibiotic agents
CPT/HCPCS: 10081; 27000

== ENCOUNTER → 2016-07-09 | Outpatient (CLI) | payer OTHER ==
[~2016-07-09] MED LIST changes: +ATENOLOL 100MG100 M2 PO; +CARAFATE 1 GM TA1 G1 PO; +FLEXERIL PO; +FLONASE 0.05%50 MCG NASAL; +LASIX 40 MG TAB40 M2 PO; +LEVAQUIN 500 M500 M4 PO; +LEVAQUIN 500 M500 M9 PO; +LISINOPRIL5 MG PO; +POTASSIUM20 PO; +VITAMIN D1000 UNI1 PO; +VITAMINC500 PO
[2016-07-09 08:48] LABS: HEMATOCRIT 31.3 % (42.0-52.0); HEMOGLOBIN 9.7 gm/dL (14.0-18.0); MCH 24.1 pg (26.0-34.0); MCV 77.7 fL (80.0-100.0); PLATELET COUNT 576 thou/uL (150-400); RBC 4.02 mil/uL (4.50-6.00); WBC 14.7 thou/uL (4.0-11.0)
[2016-07-09 08:53] LABS: MANUAL DIFF YES
[2016-07-09 08:59] LABS: CALCIUM 9.5 mg/dL (8.5-10.1); CREATININE 1.2 mg/dL (0.6-1.3); POTASSIUM 4.5 mmol/L (3.5-5.1)
[2016-07-09 09:03] LABS: ALBUMIN 2.5 g/dL (3.4-5.0); TOTAL BILIRUBIN 0.2 mg/dL (<0.1-1.0); TOTAL PROTEIN 7.8 g/dL (6.4-8.2)
[2016-07-09 09:20] LABS: ABSOLUTE NEUTROPHILS 12.8 thou/uL (1.4-8.2); TOTAL CELL COUNT 100
== END ==
LOC: RAD 08:25
PROVIDERS: Specialist
DX: J18.9 Pneumonia, unspecified organism (principal); J90 Pleural effusion, not elsewhere classified; J98.11 Atelectasis

== ENCOUNTER → 2016-07-23 | Outpatient (CLI) | payer OTHER ==
--- NOTE | ~2016-07-23 | CNG ---
[facility] [place] [place] [address] [address] [place] [address] CYTO-NONGYN REPORT PROCEDURE Name: RASHARD NOLASCO Room #: REG CL BrendaDonny.#: [id number] Admission: 07/23/16 Date of : 55 Discharge: Report #: [id number] Path Case #: [id number] CYTOPATHOLOGY REPORT COLLECTION DATE: 07/23/2016 RECEIVED DATE: 07/23/2016 SUBMITTING PHYS: SCOTT Hill OTHER PHYS: Dr. Jamil Henao, [place] CLINICAL HISTORY: Pleural Effusion SPECIMEN(S) RECEIVED: A.Pleural fluid * * * * * * * * * * * * FINAL DIAGNOSIS: A. Pleural fluid: - No malignant cells identified. Marked acute inflammation consistent with an exudate. COMMENT: Due to the obscuring inflammation no other cells are identified or evaluated for that reason. Suggest clinical correlation with anaerobic/aerobic cultures and additional studies if indicated. (IUV; 07/24/16) PATHOLOGIST: Christa Juarez M.D. REPORT ELECTRONICALLY SIGNED BY: Christa Juarez M.D. DATE/TIME: 07/24/2016 16:34 * * * * * * * * * * * * GROSS PATHOLOGY: A. Pleural fluid: The specimen is submitted unfixed, labeled "Rashard Nolasco". Received by the Cytology Department is 10 mL of thick dark yellow fluid. One ThinPrep slide and a cell block were prepared. (mm 4.) DRY ROOM ATTENDANT(S): Noemy Lowry, REY(ASCP), IAC INITIAL CPT CODE(S): A; 24976, 60363 Professional services performed by [facility] at [facility] [address], [place] [address] Technical services performed by [facility] at [address] [place] [address]., [address], [place] [address]. [facility] [address] [place] [address] CYTO-NONGYN REPORT PROCEDURE Name: RASHARD NOLASCO Room #: REG [facility].#: [id number] Admission: 07/23/16 Date of : 55 Discharge: Report #: [id number] Path Case #: [id number] [facility] [address] [place] [address], [facility] [place] [address] [place] [address] PHONE: [phone] DIRECTOR: Sudhakar Anderson M.D. * * * END OF REPORT * * *
[2016-07-23 10:31] LABS: HEMATOCRIT 31.3 % (42.0-52.0); HEMOGLOBIN 10.1 gm/dL (14.0-18.0); MCH 23.9 pg (26.0-34.0); MCHC 32.2 g/dL (28.0-37.0); MCV 74.2 fL (80.0-100.0); RBC 4.21 mil/uL (4.50-6.00); WBC 10.9 thou/uL (4.0-11.0)
[2016-07-23 10:39] LABS: CALCIUM 9.7 mg/dL (8.5-10.1); CREATININE 0.9 mg/dL (0.7-1.3); POTASSIUM 4.3 mmol/L (3.5-5.1)
[2016-07-23 10:47] LABS: INR 1.1; PROTIME 11.5 Seconds (9.3-11.4)
[2016-07-23 11:59] LABS: CLARITY TURBID; COLOR GRAY; TOTAL VOLUME 60 mL
[2016-07-23 13:56] LABS: BF NUCLEATED CELLS 609500; BF RBC 31000; MANUAL DIFF YES
[2016-07-23 15:22] LABS: BF NEUTROPHILS 91
[2016-07-23 15:24] LABS: BF MACROPHAGE 0
[2016-07-24 19:06] LABS: BODY FLUID ALBUMIN 0.6 g/dL (()); BODY FLUID AMYLASE 4 U/L (()); BODY FLUID GLUCOSE 360 mg/dL (()); BODY FLUID LDH 58720 IU/L (()); BODY FLUID PROTEIN 2.8 g/dL (())
== END ==
LOC: RAD 08:25 → ULTRA 08:25 → RAD 11:16
PROVIDERS: Physician Assistant
DX: J90 Pleural effusion, not elsewhere classified (principal); R06.02 Shortness of breath; J18.9 Pneumonia, unspecified organism; J86.9 Pyothorax without fistula; J94.8 Other specified pleural conditions

== ENCOUNTER 2016-07-31 06:17 | Inpatient (IN) | payer OTHER ==
[2016-07-29 09:46] LABS: HEMATOCRIT 32.1 % (42.0-52.0); MCH 23.5 pg (26.0-34.0); MCHC 31.1 g/dL (28.0-37.0); MCV 75.6 fL (80.0-100.0); RBC 4.24 mil/uL (4.50-6.00); RDW 18.9 % (10.5-14.5); WBC 11.7 thou/uL (4.0-11.0)
[2016-07-29 09:47] LABS: URINE BILIRUBIN NEGATIVE (Negative); URINE BLOOD NEGATIVE (Negative); URINE COLOR YELLOW; URINE GLUCOSE-RANDOM* NEGATIVE (Negative); URINE KETONES NEGATIVE (Negative); URINE LEUKOCYTES-REFLEX NEGATIVE (Negative); URINE PROTEIN (DIPSTICK) NEGATIVE (Negative); URINE SPECIFIC GRAVITY 1.015 (1.003-1.035); URINE UROBILINOGEN 0.2 E.U./dl (0.2-1.0)
[2016-07-29 10:03] LABS: APTT 29.4 Seconds (24.5-32.8); INR 1.1; PROTIME 11.1 Seconds (9.3-11.4)
[2016-07-29 10:05] LABS: ALBUMIN 2.9 g/dL (3.4-5.0); CALCIUM 9.2 mg/dL (8.5-10.1); POTASSIUM 4.5 mmol/L (3.5-5.1); TOTAL BILIRUBIN 0.3 mg/dL (<0.1-1.0); TOTAL PROTEIN 7.7 g/dL (6.4-8.2)
[2016-07-31] VITALS (11 sets, daily range): BP systolic 101–119; BP diastolic 60–75
[~2016-07-31] VITALS: Ht 177.8 cm; Wt 83.5 kg
--- NOTE | ~2016-07-31 | O ---
[facility] [place] [address] OPERATIVE REPORT Name: KARISHMA ANDRADE Room #: 212-P [facility] IN M.R.#: [id number] Admission: 07/31/16 Attend Phys: Ervin House MD Discharge: 08/04/16 Date of : 55 Report #: [id number] THIS REPORT FOR: //name// CC: Calvin Cageok Ervin House DATE OF SERVICE: 07/31/2016 PREOPERATIVE DIAGNOSIS: Empyema, left chest. POSTOPERATIVE DIAGNOSIS: Empyema, left chest. PROCEDURE: Bronchoscopy, left video-assisted thoracoscopy, left posterolateral thoracotomy with decortication. SURGEON: Evrin House MD. RAW STOCK MACHINE LOADER: Brian. ANESTHESIA: General. INDICATIONS: The patient is a 61-year-old known to me from coronary artery bypass surgery in March. The patient had somewhat slow, but satisfactory postoperative course and he was discharged in satisfactory condition. Unfortunately, he returned in April with gastrointestinal bleed. It appears that later, the patient had a pneumonia in May and as a result of this, he developed a parapneumonic effusion. We had recommended that the patient have exploration for this earlier, but he refused surgery; however, he has done poorly with chronic wasting, persistent cough and appears now for a definitive treatment of this loculated effusion and empyema. FINDINGS AND TECHNIQUE: After general anesthesia was established, flexible diagnostic bronchoscopy was performed. There was abundant sputum in the left lower lobe bronchial system, but no specific endobronchial lesions. A double lumen tube was placed. The patient was positioned with left side up. Exposure was initially obtained through video-assisted thoracoscopy ports, but there was too much reaction for this procedure to be successful; therefore, the incision was expanded to a posterolateral thoracotomy and a decortication was taken out. We entered a pustule pocket in the lower aspect of the left chest. Cultures of this were sent. The lung was decorticated, but most of the reaction was in the left lower lobe region. We decorticated this area as best we could with both sharp and blunt dissection and the chest was irrigated with copious amounts of saline. Hemostasis was ascertained and 4 tubes were placed to drain the anterior, [facility] [address] [place] [address] OPERATIVE REPORT Name: RAYMONDKARISHMA RUSS Room #: 212-P DIS IN M.R.#: [id number] Admission: 07/31/16 Attend Phys: Ervin House MD Discharge: 08/04/16 Date of : 55 Report #: [id number] lateral, posterior, and inferior pleural surfaces and then the chest was closed in the usual fashion. The patient was taken to the recovery area in good condition having tolerated the procedure well. All counts reported as correct. By: 1419 1515 Ervin House MD /nt
--- NOTE | ~2016-07-31 | H ---
[facility] [place] [address] HISTORY AND PHYSICAL Name: RAYMONDKARISHMA RUSS Room #: 212-P [facility] IN M.R.#: [id number] Admission: 07/31/16 Attend Phys: Ervin House MD Discharge: 08/04/16 Date of : 55 Report #: [id number] THIS REPORT FOR: //name// For History and Physical, please see office documentation/handwritten note in the patient's medical record. <ELECTRONICALLY SIGNED> By: Ervin House MD 08/08/16 0830 1426 Ervin House MD /
--- NOTE | ~2016-07-31 | S ---
[facility] [place] [address] SURGICAL PATH RPT PROCEDURE Name: KARISHMA NOLASCO Room #: 212-P ADM IN M.R.#: [id number] Admission: 07/31/16 Date of : 55 Discharge: Report #: [id number] Path Case #: [id number] PATHOLOGY REPORT COLLECTION DATE: 07/31/2016 RECEIVED DATE: 08/01/2016 SUBMITTING PHYS: Dr. Ervin House OTHER PHYS: Dr. Calvin Henao, III SPECIMEN(S) RECEIVED: A.Left pleural peel B.Abscess wall * * * * * * * * * * * * FINAL DIAGNOSIS: A. Left pleural peel: - Marked acute inflammation along with fibrinopurulent exudate. - Reactive mesothelium. B. Abscess wall: - Marked acute inflammation along with fibrinopurulent exudate, consistent with abscess wall. (IUV:csd; d/t: 08/04/2016) PATHOLOGIST: Christa Juarez M.D. REPORT ELECTRONICALLY SIGNED BY: Christa Juarez M.D. DATE/TIME: 08/04/2016 15:18 * * * * * * * * * * * * GROSS PATHOLOGY: A. The specimen is received in formalin, labeled "Karishma Nolasco and left pleural peel." Received is a 9.4 x 5.5 x 2.2 cm aggregate of blood-tinged, yellow-menard to pink-menard, rubbery, and thickened soft tissue. The specimen is serially sectioned and representatively submitted in cassette A1. B. The specimen is received in formalin, labeled "Karishma Nolasco and abscess wall." Received is a 3.2 x 2.8 x 1.0 cm aggregate of blood-tinged, pink-menard to casey-menard, membranous, and rubbery soft tissue. The specimen is sectioned and representatively submitted in cassette B1. (TTL; 08/01/2016) CLINICAL HISTORY: Loculated pleural effusion, left INITIAL CPT CODE(S): A; [address] [address] SURGICAL PATH RPT PROCEDURE Name: KARISHMA NOLASCO RUSS Room #: 212- ADM IN M.R.#: [id number] Admission: 07/31/16 Date of : 55 Discharge: Report #: [id number] Path Case #: [id number]; [id number] Professional services performed by [facility] at [address], [place] [address] Technical services performed by [facility] at [address] [place] [address], [address], [place] [address]. [facility] [address] [address] PHONE: [phone] DIRECTOR: Sudhakar Anderson M.D. * * * END OF REPORT * * *
--- NOTE | ~2016-07-31 | HC ---
[facility] [place] [address] CONSULTATION Name: KARISHMA ANDRADE Room #: 212-P ADM IN M.R.#: [id number] Admission: 07/31/16 Attend Phys: Ervin House MD Discharge: Date of : 55 Report #: [id number] THIS REPORT FOR: //name// CC: Calvin House INFECTIOUS DISEASE CONSULTATION REASON FOR CONSULTATION: I was asked to evaluate the patient concerning left chest empyema. HISTORY OF PRESENT ILLNESS: The patient was initially evaluated in June, where he was found to have a loculated left chest effusion. Attempts at thoracentesis failed. Initial culture results were no growth. He was treated with IV antibiotic therapy and dismissed on Levaquin after the patient had refused thoracotomy for drainage of this empyema. While at home, he was still failing to thrive. He was finally convinced to proceed with surgery one month following his last hospitalization. 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 He underwent surgery yesterday with decortication. Surgery went well without complication. He has chest tubes in place, now is on oxygen per nasal cannula. He is alert and cooperative. He had undergone coronary bypass grafting in first week of March of 2016. Leading up to his current surgery, no fever or chills. This was not progressing well in rehabilitation. ALLERGIES: AMOXICILLIN. MEDICATIONS: As noted on his MAR, he was given cefazolin and clindamycin postoperatively. PAST MEDICAL HISTORY: Appendectomy, back surgery, wrist surgery and sinus surgery. He has had a previous pneumonia, hyperlipidemia and hypertension. FAMILY HISTORY: Noncontributory. SOCIAL HISTORY: Nonsmoker. No significant alcohol intake. Lives with his . REVIEW OF SYSTEMS: No GI or complaints. PHYSICAL EXAMINATION: VITAL SIGNS: The patient was afebrile and hemodynamically stable. GENERAL: He is alert, cooperative and pleasant. Still a fair amount of pain. Four chest tubes in the left side. HEENT: Unremarkable. [address] [address] CONSULTATION Name: KARISHMA ANDRADE Room #: [facility] IN M.R.#: [id number] Admission: 07/31/16 Attend Phys: Ervin House MD Discharge: Date of : 55 Report #: [id number] LUNGS: Decreased breath sounds on the left. HEART: Regular, without murmur. ABDOMEN: Soft, nontender. No hepatosplenomegaly or mass. EXTREMITIES: Unremarkable. LABORATORY STUDIES: Sodium 135, potassium 4.8, bicarbonate 22 and creatinine 1.4. Hemoglobin 8.5, white count 13.5 and platelet count 384,000. Urinalysis unremarkable. Chest fluid from yesterday is currently pending. Chest x-ray, left-sided thoracostomy tubes in place, small pleural effusion. IMPRESSION: A 61-year-old with empyema, left chest, with Fusobacterium identified. The patient is allergic to AMOXICILLIN. PLAN: Plan will be to treat with ceftriaxone and metronidazole. We will continue postoperative care. <ELECTRONICALLY SIGNED> By: Jamil Gardner MD 08/04/16 1120 0918 1108 Jamil Gardner MD /nt
[~2016-07-31 06:17] MED LIST changes: +ATENOLOL 100MG100 MG PO; +LEVAQUIN 500 M500 M2 PO; +LIPITOR 20 MG T20 M1 PO; +PANTOPRAZOLE SO40 M1 PO
[2016-08-01 04:52] LABS: HEMATOCRIT 27.2 % (42.0-52.0); HEMOGLOBIN 8.5 gm/dL (14.0-18.0); MCH 23.2 pg (26.0-34.0); MCHC 31.1 g/dL (28.0-37.0); MCV 74.5 fL (80.0-100.0); RBC 3.66 mil/uL (4.50-6.00); RDW 18.6 % (10.5-14.5); WBC 13.5 thou/uL (4.0-11.0)
[2016-08-01 06:10] LABS: CALCIUM 8.3 mg/dL (8.5-10.1); CREATININE 1.4 mg/dL (0.7-1.3); POTASSIUM 4.8 mmol/L (3.5-5.1)
[2016-08-01 09:29] VITALS: BP 110/72
[2016-08-01 11:40] VITALS: BP 113/78
[2016-08-01 15:15] VITALS: BP 119/69
[2016-08-01 19:55] VITALS: BP 107/61
[2016-08-02 00:02] VITALS: BP 134/70
[2016-08-02 04:05] VITALS: BP 107/71
[2016-08-02 07:25] VITALS: BP 94/56
[2016-08-02 11:05] VITALS: BP 113/68
[2016-08-02 15:35] VITALS: BP 109/68
[2016-08-02 20:05] VITALS: BP 116/67
[2016-08-03 04:10] LABS: CALCIUM 8.8 mg/dL (8.5-10.1); CREATININE 1.2 mg/dL (0.7-1.3); POTASSIUM 3.9 mmol/L (3.5-5.1)
[2016-08-03 04:16] VITALS: BP 121/72
[2016-08-03 04:20] LABS: HEMATOCRIT 25.7 % (42.0-52.0); MCH 23.2 pg (26.0-34.0); MCV 74.8 fL (80.0-100.0); PLATELET COUNT 371 thou/uL (150-400); RBC 3.44 mil/uL (4.50-6.00); RDW 18.6 % (10.5-14.5); WBC 11.2 thou/uL (4.0-11.0)
[2016-08-03 04:25] LABS: MANUAL DIFF YES
[2016-08-03 05:40] LABS: ABSOLUTE NEUTROPHILS 8.7 thou/uL (1.4-8.2); ANISOCYTOSIS 2+; HYPOCHROMASIA SLIGHT; MICROCYTES 1+; TOTAL CELL COUNT 100
[2016-08-03 07:10] VITALS: BP 129/88
[2016-08-03 11:40] VITALS: BP 124/71
[2016-08-03 16:10] VITALS: BP 114/66
[2016-08-03 20:08] VITALS: BP 130/76
[2016-08-04 04:18] VITALS: BP 125/83
[2016-08-04 07:15] VITALS: BP 136/69
[2016-08-04 10:03] VITALS: BP 136/69
[2016-08-04 12:00] VITALS: BP 107/64
[2016-08-04 14:27] VITALS: BP 107/64; BP 136/69
[2016-08-08] MEDS ORDERED: FLAGYL500 MG PO (10:28)
== END 2016-08-04 15:31 | disposition home or self-care (01) | DRG 163 ==
LOC: ICU 06:17 → TBA 06:17 → PRE 08:16 → ICU 16:46 → 2N 08-01 11:59
PROVIDERS: Internal Medicine Infectious Disease; Physician Assistant; Surgery Vascular Surgery
PROC: 0BDP0ZZ Extraction of Left Pleura, Open Approach (ICD-10-PCS; principal; 2016-07-31)
PROC: 03HC33Z Insertion of Infusion Device into Left Radial Artery, Percutaneous Approach (ICD-10-PCS; 2016-07-31)
PROC: B548ZZA Ultrasonography of Superior Vena Cava, Guidance (ICD-10-PCS; 2016-08-04)
PROC: 02HV33Z Insertion of Infusion Device into Superior Vena Cava, Percutaneous Approach (ICD-10-PCS; 2016-08-04)
DX: J86.9 Pyothorax without fistula (principal); J18.9 Pneumonia, unspecified organism; J90 Pleural effusion, not elsewhere classified; E78.5 Hyperlipidemia, unspecified; I10 Essential (primary) hypertension; Z96.639 Presence of unspecified artificial wrist joint; I25.10 Atherosclerotic heart disease of native coronary artery without angina pectoris; Z79.899 Other long term (current) drug therapy; Z95.1 Presence of aortocoronary bypass graft; Z88.1 Allergy status to other antibiotic agents; Z90.49 Acquired absence of other specified parts of digestive tract
CPT/HCPCS: 10081; 10204; 27001; 47405; 50010; 50101; 50386; 50417; 50455; 50497; 51301; 51717; 52265; 54118; 56524; 56525; 56526; 56527; 56531; 62110; 62900; 65020; 65040; 65043; 65105; 70005

== ENCOUNTER → 2016-08-05 | Outpatient (CLI) | payer OTHER ==
[~2016-08-05] MED LIST changes: +FLAGYL500 MG PO
[2016-08-05 10:20] VITALS: BP 117/66
== END ==
LOC: OPONC 08:07
DX: J86.9 Pyothorax without fistula (principal)
CPT/HCPCS: 95000

== ENCOUNTER → 2016-08-06 | Outpatient (CLI) | payer OTHER ==
[2016-08-06 11:36] VITALS: BP 120/73
== END ==
LOC: OPONC 08:19
DX: J90 Pleural effusion, not elsewhere classified (principal)
CPT/HCPCS: 95000; 95001

== ENCOUNTER → 2016-08-07 | Outpatient (CLI) | payer OTHER ==
[2016-08-07 09:30] VITALS: BP 128/66
== END ==
LOC: OPONC 09:03
DX: J90 Pleural effusion, not elsewhere classified (principal)
CPT/HCPCS: 95000

== ENCOUNTER → 2016-08-08 | Outpatient (CLI) | payer OTHER ==
[2016-08-08 08:38] LABS: HEMATOCRIT 26.5 % (42.0-52.0); HEMOGLOBIN 8.3 gm/dL (14.0-18.0); MCH 23.2 pg (26.0-34.0); MCHC 31.4 g/dL (28.0-37.0); RBC 3.58 mil/uL (4.50-6.00); RDW 18.8 % (10.5-14.5); WBC 7.2 thou/uL (4.0-11.0)
[2016-08-08 08:49] LABS: CALCIUM 8.4 mg/dL (8.5-10.1); CREATININE 1.1 mg/dL (0.7-1.3); POTASSIUM 3.6 mmol/L (3.5-5.1)
[2016-08-08 08:54] LABS: ALBUMIN 2.4 g/dL (3.4-5.0); TOTAL BILIRUBIN 0.2 mg/dL (<0.1-1.0); TOTAL PROTEIN 6.9 g/dL (6.4-8.2)
[2016-08-08 09:07] VITALS: BP 121/73
== END ==
LOC: OPONC 08:22
PROVIDERS: Specialist
DX: J90 Pleural effusion, not elsewhere classified (principal)
CPT/HCPCS: 95000

== ENCOUNTER → 2016-08-20 | Outpatient (CLI) | payer OTHER ==
[2016-08-20 08:54] LABS: ABSOLUTE NEUTROPHILS 5.2 thou/uL (1.4-8.2); BASOPHILS 1.3 % (0.0-2.0); EOSINOPHILS 3.9 % (0.0-3.0); HEMATOCRIT 33.8 % (42.0-52.0); HEMOGLOBIN 10.4 gm/dL (14.0-18.0); LYMPHOCYTES 18.4 % (24.0-44.0); MCH 23.2 pg (26.0-34.0); MCHC 30.8 g/dL (28.0-37.0); MCV 75.3 fL (80.0-100.0); MONOCYTES 6.5 % (1.0-8.0); PLATELET COUNT 406 thou/uL (150-400); POLYS 69.9 % (36.0-66.0); RBC 4.49 mil/uL (4.50-6.00); RDW 20.1 % (10.5-14.5); WBC 7.4 thou/uL (4.0-11.0)
[2016-08-20 08:59] LABS: MANUAL DIFF NO
[2016-08-20 09:03] LABS: CALCIUM 9.5 mg/dL (8.5-10.1); CREATININE 1.2 mg/dL (0.7-1.3); POTASSIUM 4.9 mmol/L (3.5-5.1)
[2016-08-20 09:07] LABS: ALBUMIN 3.4 g/dL (3.4-5.0); TOTAL BILIRUBIN 0.5 mg/dL (<0.1-1.0); TOTAL PROTEIN 7.8 g/dL (6.4-8.2)
== END ==
LOC: RAD 08:26
PROVIDERS: Specialist
DX: J86.9 Pyothorax without fistula (principal)

== ENCOUNTER → 2016-09-12 | Outpatient (CLI) | payer OTHER | LOC: RAD 15:42 | DX: J86.9 Pyothorax without fistula (principal) ==

== ENCOUNTER → 2020-07-12 | Outpatient (CLI) | payer OTHER | LOC: SJCVCIMAG 08:42 | PROVIDERS: ATTEND Internal Medicine Cardiovascular Disease | DX: I25.10 Atherosclerotic heart disease of native coronary artery without angina pectoris (principal); I10 Essential (primary) hypertension; E78.5 Hyperlipidemia, unspecified; Z95.1 Presence of aortocoronary bypass graft; Z79.899 Other long term (current) drug therapy ==